=== PATIENT | male | born 1985 | race African-American/Black ===

== ENCOUNTER 2021-01-31 05:00 | Day surgery (SDC) | payer BC, OTHER ==
[2021-01-28 13:52] VITALS: BMI 27.0
[2021-01-31] MEDS ORDERED: BUPIVACAINE HCL/PF 0.5% (5MG/ML) 10 ML VIAL ONE (12:08)
[2021-01-31] MEDS ORDERED: LIDOCAINE HCL 1%, 10 MG/ML (20ML VIAL) ONE (12:08)
[2021-01-31] MEDS ORDERED: PROPOFOL 20 ML ONE (13:18)
[2021-01-31] MEDS ORDERED: MIDAZOLAM HCL 2 MG/2 ML SINGLE DOSE VIAL ONE ×2 (13:19→13:31)
[2021-01-31] MEDS ORDERED: ceFAZolin SODIUM 1 GM VIAL ONE (13:24)
[2021-01-31] MEDS ORDERED: ceFAZolin 2 GRAM PREMIX BAG IVPB ONE (13:25)
[2021-01-31] MEDS ORDERED: DEXAMETHASONE SOD PHOSPHATE 4 MG/1 ML VIAL ONE (13:29)
[2021-01-31] MEDS ORDERED: LIDOCAINE HCL 1%, 10 MG/ML (20ML VIAL) NR ONE (13:35)
[2021-01-31] MEDS ORDERED: BUPIVACAINE HCL/PF 0.5% (5MG/ML) 10 ML VIAL IJ ONE (13:35)
[2021-01-31] MEDS ORDERED: oxyCODONE HCL 5 MG TABLET PO PRN (14:52)
[2021-01-31] MEDS ORDERED: ONDANSETRON 4 MG/2 ML VIAL IVPUSH PRN (14:52)
[2021-01-31] MEDS ORDERED: LACTATED RINGERS SOLUTION 1,000 ML IV SCH (15:00)
[2021-01-31 17:31] VITALS: PULSE 58; TEMP 97.8
[2021-01-31 17:33] VITALS: BP 123/70
== END 2021-01-31 16:20 | disposition home or self-care (01) ==
LOC: JASU-SURG 05:00
PROVIDERS: ATTEND Urology
PROC: 0VTQ0ZZ Resection of Bilateral Vas Deferens, Open Approach (ICD-10-PCS; principal; 2021-01-31 12:00)
DX: Z30.2 Encounter for sterilization (principal)
CPT/HCPCS: 88302-TC

== ENCOUNTER 2021-12-05 05:11 | Day surgery (SDC) | payer BC, OTHER ==
[2021-11-30 17:58] VITALS: BMI 12.2
[2021-12-05 07:55] VITALS: RESP 18
[2021-12-05] MEDS ORDERED: PROPOFOL 20 ML ONE ×3 (08:19)
[2021-12-05] MEDS ORDERED: MIDAZOLAM HCL 2 MG/2 ML SINGLE DOSE VIAL ONE (08:46)
[2021-12-05] MEDS ORDERED: KETOROLAC TROMETHAMINE 30 MG/1 ML VIAL ONE (09:20)
[2021-12-05 10:52] VITALS: BP 106/60; PULSE 69; TEMP 97.8
== END 2021-12-05 11:20 | disposition home or self-care (01) ==
LOC: JASU-SURG 05:11
PROVIDERS: ATTEND Urology
PROC: 0TF3XZZ Fragmentation in Right Kidney Pelvis, External Approach (ICD-10-PCS; principal; 2021-12-05 09:13)
DX: N20.0 Calculus of kidney (principal)